=== PATIENT | female | born 1980 | race Caucasian/White ===

== ENCOUNTER 2024-07-20 17:51 | Emergency (ER) | payer MEDICAID, SELFPAY ==
[2024-07-20 17:52] VITALS: BMI 24.3
[2024-07-20 18:07] VITALS: BP 169/84; PULSE 90; RESP 19; TEMP 37.7; O2SAT 95; BMI 24.3
--- NOTE | 2024-07-20 18:25 | XR_ITS ---
Examination: CT brain head without contrast. 2-D sagittal coronal reconstructions Date and time of exam:July 20, 2024 1833 hours INDICATIONS: Headache nausea beginning today CTDI: vol (mGy):48.2 DLP: (mGycm):934 Technique: Multiple CT axial sections of the brain have been obtained, 5 mm slice thickness. Contrast has not been administered. 2-D sagittal, coronal reconstructions have been obtained Low dose protocols were performed. One or more of the following dose reduction techniques were used; automated exposure control, adjustment of the mA and/or KV according to patient size, use of iterative reconstruction technique. Findings: No significant ventricular enlargement. Intra-axial or extra-axial hemorrhage density is not seen. No mass effect or midline shift Basal cisterns are not remarkable. Fourth ventricle is midline. Cranial vault intact. Impression: Negative for acute hemorrhage, mass effect or midline shift Chronic pansinusitis, severe involving the ethmoid air cells
--- NOTE | 2024-07-20 18:26 | EDRME_ITS ---
Rapid Medical Screening Exam [facility] Arrival date/time: 07/20/24 17:51 43F with history of drug use presents to ED with 3 days of cough, BERRY, N/V, and fevers/chills. Chief Complaint: Headache Vital signs: Vital Signs Temperature 99.9 F 07/20/24 18:07 Pulse Rate 90 07/20/24 18:07 Respiratory Rate 19 07/20/24 18:07 Blood Pressure 169/84 H 07/20/24 18:07 Pulse Oximetry (%) 95 07/20/24 18:07 Oxygen Delivery Method Room Air 07/20/24 18:07
[2024-07-20] MEDS: SUMAtriptan INJ 6 MG/0.5 ML VIAL SC (18:49)
[2024-07-20] MEDS: METOCLOPRAMIDE 5 MG TABLET 10 MG PO (18:50)
[2024-07-20 21:09] LABS: Basophils % (Auto) 0 % (0-2.5); Eosinophils % (Auto) 0 % (0-10); Hemoglobin 10.5 g/dL (12.0-16.0); Immature Granulocytes % (Auto) 0 % (0-0); Immature Granulocytes Auto 0.02 Thou/mm3 (0.00-0.00); Lymphocytes # (Auto) 0.7 Thou/mm3 (1.0-4.8); Lymphocytes % (Auto) 13 % (10-50); Mean Corpuscular Hemoglobin 20.8 pg (25.0-35.0); Mean Corpuscular Volume 69 fL (80-100); Monocytes # (Auto) 0.6 Thou/mm3 (0.0-0.8); Monocytes % (Auto) 12 % (0-12); Neutrophils # (Auto) 4.1 Thou/mm3 (1.8-7.7); Neutrophils % (Auto) 74 % (37-80); Nucleated Red Blood Cell % 0 /100 WBC (0); Platelet Count 210 Thou/mm3 (140-440); Red Blood Count 5.04 Miln/mm3 (4.00-5.20); White Blood Count 5.5 Thou/mm3 (3.6-11.0)
[2024-07-20 21:37] LABS: Path Review Blood Smear Sent to Pathologist
[2024-07-20 21:40] LABS: Alanine Aminotransferase 57 U/L (10-49); Albumin, Serum 4.4 gm/dL (3.5-5.0); Albumin/Globulin Ratio 1.5 (1.2-2.2); Alkaline Phosphatase 103 U/L (46-116); Anion Gap 6 (7-16); Aspartate Amino Transferase 58 U/L (0-34); BUN/Creatinine Ratio 8 Ratio (12-20); Bilirubin,Total 0.6 mg/dL (0.3-1.2); Blood Urea Nitrogen 8 mg/dL (9-23); Calcium 10.3 mg/dL (8.3-10.6); Calcium (Corrected) 10.3 mg/dL (8.5-10.1); Carbon Dioxide 24.4 mMol/L (20.0-31.0); Chloride 100 mMol/L (98-107); Estimated Creatinine Clearance 72.4 mL/min (>60); Globulin 2.9 gm/dL (2.3-3.5); Glucose 95 mg/dL (74-106); Osmolality,Calculated 259 (275-295); Potassium 4.5 mMol/L (3.4-5.1); Procalcitonin 0.08 ng/ml (0.0-0.49); Sodium 130 mMol/L (136-145); Total Protein 7.3 gm/dL (5.7-8.2); eGFR > 60 See Note
--- NOTE | 2024-07-20 21:53 | PC.NURSE ---
NO ANSWER FOR REVIEW
--- NOTE | 2024-07-20 22:10 | PC.NURSE ---
NO ANSWER FOR REVIEW
--- NOTE | 2024-07-20 22:28 | PC.NURSE ---
NO ANSWER FOR REVIEW
== END 2024-07-20 22:28 | disposition left against medical advice (07) ==
LOC: SERX 19:05
PROVIDERS: Physician Assistant; Emergency Provider Emergency Medicine
DX: R05.9 Cough, unspecified (principal); R51.9 Headache, unspecified; R11.2 Nausea with vomiting, unspecified; R50.9 Fever, unspecified; Z53.29 Procedure and treatment not carried out because of patient's decision for other reasons
CPT/HCPCS: 36415; 70450; 80053; 83605; 84145; 85025; 87400; 87811; 96372; 99281; J3030; A9270

== ENCOUNTER 2024-07-23 16:01 | Inpatient (IN) | payer MEDICAID, SELFPAY ==
[2024-07-23 16:03] VITALS: BMI 24.3
[2024-07-23 16:43] VITALS: BP 149/75; PULSE 107; RESP 20; TEMP 39.4; O2SAT 95
--- NOTE | 2024-07-23 16:45 | XR_ITS ---
Examination: PA lateral chest 2 views TECHNIQUE: Upright PA and lateral chest 2 views Examination type: July 23, 2024, 1812 hours INDICATIONS: Coughing beginning 5 days ago. FINDINGS: Significant pneumonia right lower lobe and right middle lobe Prominent thoracic dextroscoliosis Heart is normal in size IMPRESSION: Significant pneumonia right base right middle lobe
--- NOTE | 2024-07-23 16:45 | PC.NURSE ---
sepsis alert initiated
--- NOTE | 2024-07-23 16:46 | PD.EDRME ---
Rapid Medical Screening Exam [facility] Arrival date/time: 07/23/24 16:01 43-year-old female presents to the emergency department today for complaints of fever cough and congestion Chief Complaint: Flu Like Symptoms Time Seen by Provider: 07/23/24 16:09 Vital signs: Vital Signs Temperature 103.0 F H 07/23/24 16:43 Pulse Rate 107 H 07/23/24 16:43 Respiratory Rate 20 07/23/24 16:43 Blood Pressure 149/75 H 07/23/24 16:43 Pulse Oximetry (%) 95 07/23/24 16:43 Oxygen Delivery Method Room Air 07/23/24 16:43
[2024-07-23 16:55] VITALS: TEMP 39.4
[2024-07-23] MEDS: ACETAMINOPHEN 500 MG TABLET 1000 MG PO (16:55)
[2024-07-23 17:27] LABS: Basophils % (Auto) 0 % (0-2.5); Eosinophils % (Auto) 0 % (0-10); Hematocrit 31.8 % (36.0-46.0); Hemoglobin 9.7 g/dL (12.0-16.0); Immature Granulocytes % (Auto) 1 % (0-0); Immature Granulocytes Auto 0.04 Thou/mm3 (0.00-0.00); Lymphocytes # (Auto) 0.4 Thou/mm3 (1.0-4.8); Lymphocytes % (Auto) 5 % (10-50); Mean Corpuscular HGB Conc 30.5 g/dl (31.0-37.0); Mean Corpuscular Volume 69 fL (80-100); Monocytes # (Auto) 0.4 Thou/mm3 (0.0-0.8); Monocytes % (Auto) 5 % (0-12); Neutrophils # (Auto) 7.8 Thou/mm3 (1.8-7.7); Neutrophils % (Auto) 90 % (37-80); Nucleated Red Blood Cell % 0 /100 WBC (0); Platelet Count 175 Thou/mm3 (140-440); RDW Standard Deviation 38.7 fL (36.4-46.3); Red Blood Count 4.62 Miln/mm3 (4.00-5.20); White Blood Count 8.7 Thou/mm3 (3.6-11.0)
[2024-07-23 17:51] LABS: Alanine Aminotransferase 102 U/L (10-49); Albumin, Serum 3.9 gm/dL (3.5-5.0); Albumin/Globulin Ratio 1.5 (1.2-2.2); Alkaline Phosphatase 141 U/L (46-116); Anion Gap 6 (7-16); Aspartate Amino Transferase 130 U/L (0-34); BUN/Creatinine Ratio 12 Ratio (12-20); Bilirubin,Total 0.8 mg/dL (0.3-1.2); Blood Urea Nitrogen 12 mg/dL (9-23); Calcium 9.7 mg/dL (8.3-10.6); Calcium (Corrected) 9.8 mg/dL (8.5-10.1); Carbon Dioxide 26.3 mMol/L (20.0-31.0); Chloride 96 mMol/L (98-107); Estimated Creatinine Clearance 72.4 mL/min (>60); Globulin 2.6 gm/dL (2.3-3.5); Glucose 113 mg/dL (74-106); Osmolality,Calculated 257 (275-295); Potassium 4.2 mMol/L (3.4-5.1); Procalcitonin 2.13 ng/ml (0.0-0.49); Sodium 128 mMol/L (136-145); Total Protein 6.5 gm/dL (5.7-8.2); eGFR > 60 See Note
[2024-07-23 18:21] VITALS: BP 123/75; PULSE 93; RESP 19; TEMP 36.8; O2SAT 96
--- NOTE | 2024-07-23 19:23 | PD.EDURI ---
Upper Respiratory Inf. RME/HPI General Chief Complaint: Flu Like Symptoms Stated Complaint: FLU SYMPTOMS X5 DAYS Time Seen by Provider: 07/23/24 16:09 Arrival date/time: 07/23/24 16:01 RME / HPI RME / HPI Narrative: 07/23/24 16:01 43-year-old female presents to the emergency department today for complaints of fever cough and congestion ------- Dr. Stevenson's Main ED Evaluation: 43yo female with no significant past medical history presents to the ED for a chief complaint of a fever x 5 days. Patient states she's had a fever of 103-104 for the last 5 days, reporting she's been taking Tylenol at home without alleviation of symptoms. Patient endorses having a cough, migraine headache, and sweating. She denies any chest pain, shortness of breath, abdominal pain, back pain, extremity pain or any other associated symptoms. She is not on any daily medications. Denies tobacco use. No known allergies. Related Data Previous Rx's ?Medication ?Instructions ?Recorded promethazine-DM 6.25 mg-15 mg/5 mL 5 ml PO Q6H PRN cough #118 mL 03/01/22 oral syrup Allergies Allergy/AdvReac Type Severity Reaction Status Date / Time No Known Allergies Allergy Verified 07/20/24 17:54 Review of Systems Review of Systems Systems Reviewed: All systems reviewed, normal except as documented Past Medical History Past Medical History CARDIAC: Negative Cardiac Disorders or Congestive Heart Failure RESPIRATORY: Negative Chronic Obstructive Pulmonary Disease (COPD) or Asthma GENITOURINARY: Negative Renal Disease ENDOCRINE: Negative Diabetes Mellitus Type 1 or Diabetes Mellitus Type 2 HEMATOLOGIC: Negative Sickle Cell Disease Surgical History SURGICAL: Positive Tubal Ligation Social History SMOKING STATUS: Never smoker ED Exam Narrative Physical exam: General: Non-toxic, in no acute distress, and appears stated age; appears clinically dehydrated. Vital signs: Normal. Head: Normocephalic and atraumatic. Eyes: Aproptotic, extraocular movements intact. Nose: Nares without evidence of rhinorrhea. Neck: Supple without menigismus without lympadenopathy. Heart: Regular rate and rhythm without murmur, gallops, or rubs. Lungs: Diffuse wheezing. Abdomen: Soft, non distended. No tenderness. Normal bowel sounds. Negative Rodriguez sign and no McBurney?s point tenderness. No guarding, rebound, or rovsing. Back: No costovertebral angle tenderness. Neurological: Alert and oriented to person, place, time. Gait normal. Extremities: no cyanosis or edema. Skin: Diaphoretic; no rashes, ecchymosis, or lesions. Course Course Course Narrative: CXR is ordered for determining the etiology of cough. Quality Measures Possible source: pulmonary Blood cultures ordered: yes Antibiotic ordered: Yes Pertinent labs: 07/23/24 17:04 Lactic Acid 1.0 mMol/L (0.4-2.0) Procalcitonin 2.13 H ng/ml (0.0-0.49) sepsis Orders Category Date Time Status Bedside COVID-19 Antigen Test NOW Care 07/23/24 16:45 Active Bedside Influenza A&B Antigen Test NOW Care 07/23/24 16:45 Completed Manager Employee Relations STAT Care 07/23/24 19:27 Active Continuous Pulse Oximetry STAT Care 07/23/24 19:27 Active EKG (ED ONLY) *Do not use* NOW Care 07/23/24 19:27 Completed In and Out Catheter X1PRN Care 07/23/24 19:27 Active Insert IV NOW Care 07/23/24 19:27 Active NPO STAT Care 07/23/24 19:27 Active Strict Intake and Output Routine Care 07/23/24 19:27 Ordered EKG (ED Only) Stat Exams 07/23/24 19:27 Draft XR chest 2V Stat Exams 07/23/24 16:45 Completed B-Type Natriuretic Peptide Stat Lab 07/23/24 17:04 Received Blood Culture (Lab) Stat Lab 07/23/24 17:04 Received CBC Stat Lab 07/23/24 17:04 Completed Comprehensive Metabolic Panel Stat Lab 07/23/24 17:04 Completed Drug Screen,Urine Stat Lab 07/23/24 16:45 Ordered HCG Qualitative,Urine Stat Lab 07/23/24 16:45 Ordered LDH (Lactate Dehydrogenase) Stat Lab 07/23/24 17:04 Received Lactate (Lactic Acid) Stat Lab 07/23/24 17:04 Completed Lipase Stat Lab 07/23/24 17:04 Received Magnesium Stat Lab 07/23/24 17:04 Received Partial Thromboplastin Time Stat Lab 07/23/24 17:04 Completed Phosphorous Stat Lab 07/23/24 17:04 Received Procalcitonin Stat Lab 07/23/24 17:04 Completed Prothrombin Time with INR Stat Lab 07/23/24 17:04 Completed Troponin I Stat Lab 07/23/24 17:04 Received Urinalysis Stat Lab 07/23/24 16:45 Ordered Urine Culture Stat Lab 07/23/24 16:45 Ordered Acetaminophen Tab [Tylenol ES Tab] Med 07/23/24 16:45 Discontinued 1,000 mg PO X1 ONE Albuterol/Ipratr Rt Monica [Duoneb Rt Monica] Med 07/23/24 19:26 Discontinued 3 ml INH X1 ONE Azithromycin Inj [Zithromax Inj] 500 mg Med 07/24/24 09:00 Pending Sodium Chloride 0.9% 250 ml [Ns] 250 ml IV QDAY Azithromycin Inj [Zithromax Inj] 500 mg Med 07/23/24 19:30 Active Sodium Chloride 0.9% 250 ml [Ns] 250 ml IV X1 Sodium Chloride 0.9% 1000 ml [Ns] 1,917 ml Med 07/23/24 19:26 Active IV 1,917 mls/hr cefTRIAXone/D5w 1gm IV premix [Rocephin/D5w 1gm IV Med 07/23/24 19:26 Discontinued premix] 1 gm in 50 ml IV X1 Oxygen Delivery NOW RT 07/23/24 19:27 Active Vital Signs Vital signs: Vital Signs Temperature 103.0 F H 07/23/24 16:43 Pulse Rate 107 H 07/23/24 16:43 Respiratory Rate 20 07/23/24 16:43 Blood Pressure 149/75 H 07/23/24 16:43 Pulse Oximetry (%) 95 07/23/24 16:43 Oxygen Delivery Method Room Air 07/23/24 16:43 Upper Respiratory Infection MDM Narrative MDM Narrative:: Scribe Attestation: 07/23/24 - Fiorella Carlos am scribing for and in the presence of Dr. Stevenson. 1644: Sepsis alert initiated prior to my shift. Orders made at this time are congruent with ED Adult Sepsis Order List. Re-evaluation is to be completed. NS IVF was ordered by me at 1925. 1923: Discussed case with Dr. Prieto from Hospitalist service regarding admission. Discussed patients ED course, exam findings, labs, and radiology results. The Hospitalist agrees to accept the patient for admission. Patient data External records reviewed:: [facility] previous records (Per chart review, patient was seen here on 03/01/22 for bronchitis. ) Clinical information provided by:: patient Social determinants that could affect healthcare access:: none Patient has the following chronic illnesses:: none How is presenting disease/condition affected by chronic disease/condition?: no chronic disease Evaluation data The following diagnostics were reviewed and interpreted by me:: lab results, radiology exam(s) and EKG tracing(s) Lab and/or radiology exams considered but not ordered:: none Interpretation Summary: Bedside Influenza A/B are positive, WBC count is normal, Sodium is 128, Lactic Acid is normal, Procalcitonin is elevated at 2.13, according to my interpretation. EKG done at 1934, NSR, rate of 89, normal axis, normal intervals, no acute ST or T wave changes, according to my interpretation. ---- [facility] Report Signed Patient: XIOMARA CADENA Record#: [id number] Birthdate: 1980 Age/Sex: 43 / F Location: [facility] Attending Dr: Ordering Physician: Gene (KARLEE),Wolf DESIR Date of Service: 07/23/24 Procedure(s): XR chest 2V Accession Number(s): [id number] cc: Gene SHAVER),Wolf DESIR; Matheus Liang MD; NO PRIMARY/FAMILY,PHYSICIAN~ Examination: PA lateral chest 2 views TECHNIQUE: Upright PA and lateral chest 2 views Examination type: July 23, 2024, 1812 hours INDICATIONS: Coughing beginning 5 days ago. FINDINGS: Significant pneumonia right lower lobe and right middle lobe Prominent thoracic dextroscoliosis Heart is normal in size IMPRESSION: Significant pneumonia right base right middle lobe\ Dictated By: Matheus Liang MD Signed By: <Electronically signed by Matheus Liang MD in OV> 07/23/24 7359 Medications / Prescriptions Medications or Prescriptions considered but not ordered:: none Medication administrations:: Medication Administration History Sodium Chloride (Ns) 1,917 mls @ 1,917 mls/hr 30 ml/kg infuse over 60 min (1917 ml) IV .Q1H ONE Stop: 07/23/24 20:25 Last Admin: 07/23/24 20:02 Dose: 1,917 mls/hr Documented By: EE Azithromycin 500 mg/ Sodium (Chloride) 250 mls @ 250 mls/hr IV QDAY [facility] Stop: 07/31/24 08:59 Azithromycin 500 mg/ Sodium (Chloride) 250 mls @ 250 mls/hr IV X1 ONE Stop: 07/23/24 20:29 Last Admin: 07/23/24 20:02 Dose: 250 mls/hr Documented By: EE Oseltamivir Phosphate (Oseltamivir 75 Mg Capsule) 75 mg PO BID [facility] Stop: 07/30/24 20:59 Discontinued Medications Acetaminophen (Acetaminophen 500 Mg Tablet) 1,000 mg PO X1 ONE Stop: 07/23/24 16:46 Last Admin: 07/23/24 16:55 Dose: 1,000 mg Documented By: OA Albuterol/Ipratropium (Albuterol/Ipratropium (Duoneb) Rt Monica 3 Ml Nebu) 3 ml INH X1 ONE Stop: 07/23/24 19:27 Last Admin: 07/23/24 20:00 Dose: 3 ml Documented By: EE Ceftriaxone Sodium/Dextrose (Rocephin/D5w 1gm Iv Premix) 1 gm in 50 mls @ 100 mls/hr IV X1 ONE Stop: 07/23/24 19:55 Last Admin: 07/23/24 20:01 Dose: 100 mls/hr Documented By: SHIRLENE see above Consultations Consultation(s) initiated? (list below): Yes Diagnosis Upper Respiratory Differential Diagnosis: upper respiratory infection, influenza and other (COVID, sepsis, pneumonia, PE) Most likely diagnosis given after review of the tests above:: see clinical impression below Admission Indicated Admission indicated?: indicated Admission Request Was there a request for admission?: Yes Admission Attestation Admission request attestation: Discussed case with [] from Hospitalist service regarding admission. Discussed patients ED course, exam findings, labs, and radiology results. The Hospitalist [agrees,declines] to accept the patient for admission. Disposition Plan Disposition Plan: Admit Discharge Plan Plan Patient Disposition: Admit Acute Care w/in Hospital Disposition Comment: Admitted to Dr. Prieto Problem List Clinical Impression: Sepsis, Influenza, Pneumonia, Dehydration
--- NOTE | 2024-07-23 19:27 | EKG_ITS ---
[facility] Test Date: 2024-07-23 Pat Name: XIOMARA CADENA Department: Room: - Gender: Female Tow Feeder: : 1980 Requested By: Pricilla Viera Order Number: [id number] Reading MD: Pricilla Viera Measurements Intervals Albert Rate: 89 P: 78 MT: 152 QRS: 60 QRSD: 90 T: 66 QT: 385 QTc: 471 Interpretive Statements SINUS RHYTHM POSSIBLE LEFT ATRIAL ENLARGEMENT [-0.1mV P-WAVE IN V1/V2] Compared to ECG 08/04/2020 13:56:28 No significant changes /store/S0/[id number]/ecg/[id number].pdf
[2024-07-23] MEDS: ALBUTEROL/IPRATROPIUM (Duoneb) RT SOL 3 ML NEBU INH (20:00)
[2024-07-23 20:01] VITALS: PULSE 83; PULSE 84; RESP 20; RESP 93; O2SAT 100
[2024-07-23] MEDS: cefTRIAXone/D5w 1gm IV premix 1 GM/50 ML BAG IV (20:01)
[2024-07-23] MEDS: AZITHROMYCIN INJ 500 MG in SODIUM CHLORIDE 0.9% 250 ML 250 ML 250 MG IV (20:02)
[2024-07-23] MEDS: SODIUM CHLORIDE 0.9% 1917 ML IV (20:02)
[2024-07-23 20:11] LABS: INR 1.2 (0.9-1.3); Partial Thromboplastin Time 28.3 Seconds (22.0-36.0); Prothrombin Time 12.6 Seconds (9.0-12.2)
--- NOTE | 2024-07-23 20:22 | ESHP_ITS ---
Documentation for date of: 07/23/24 HPI History of Present Illness Chief complaint: productive cough, fever, chills History of present illness: Patient is a 43-year-old female with no significant previous medical history who came to the ED with complaints of fever, chills, cough, headache. She denies shortness of breath, chest pain, abdominal pain. She reports the symptoms started few days ago, reports that she is homeless. ED course: Initial vitals 149/75, pulse 107, respiratory rate 20, fever 103.0, saturating well on room air. Bedside influenza A and influenza B are positive. Labs showed WBC count 8.7, hemoglobin 9.7, platelets 175, INR 1.2, sodium 128, potassium 4.2, chloride 96, carbon dioxide 26.3, BUN 12, creatinine 1.0, glucose 113, T. bili 0.6, AST 130, ALT 102, alkaline phosphatase 141. LDH, troponin I, BNP pending, phosphorus and magnesium are pending. Lipase is pending, Pro-Venkat 2.13. U tox was ordered. Urin Hcg was negative. Chest x-ray showed significant pneumonia of right lung base. EKG showed sinus rhythm with QTc of 471. Patient is going to be admitted for sepsis secondary to community-acquired pneumonia. Social history: Homeless, denies smoking, denies alcohol use. Reports previous methamphetamine use, reports that has not been using meth ' in a while'. Reports occasional marijuana smoking. Medications: Denies taking medications Surgeries: Denies surgeries Allergies: Denies allergies Review of Systems Review of Systems Systems Reviewed: All systems reviewed, normal except as documented Past Medical History Past Medical History CARDIAC: Negative Cardiac Disorders or Congestive Heart Failure RESPIRATORY: Negative Chronic Obstructive Pulmonary Disease (COPD) or Asthma GENITOURINARY: Negative Renal Disease ENDOCRINE: Negative Diabetes Mellitus Type 1 or Diabetes Mellitus Type 2 HEMATOLOGIC: Negative Sickle Cell Disease Surgical History SURGICAL: Positive Tubal Ligation Social History SMOKING STATUS: Never smoker Exam Vital Signs Temp Pulse Resp BP Pulse Ox O2 Del Method 98.3 F 83 20 123/75 100 Room Air 07/23/24 18:21 07/23/24 20:01 07/23/24 20:01 07/23/24 18:21 07/23/24 20:01 07/23/24 18:21 Narrative Exam Physical Exam General: Awake and in no acute distress. . HEENT: Normocephalic, atraumatic, mucous membranes moist. Heart: Regular rate and rhythm, no murmurs. Lungs: Right sided rhonchi. Abdomen: Soft, nondistended, nontender, positive bowel sounds. ?No guarding or rebound tenderness. Neurologic: Alert and oriented x3, no gross neurological deficit, and patient able to move all 4 extremities. Extremities: No edema. Skin: No rash or ecchymoses. Results: Labs 07/23/24 17:04 07/23/24 17:04 Labs: Short CBC 07/23/24 Range/Units 17:04 WBC 8.7 D (3.6-11.0) Thou/mm3 Hgb 9.7 L (12.0-16.0) g/dL Hct 31.8 L (36.0-46.0) % Plt Count 175 D (140-440) Thou/mm3 BMP 07/23/24 17:04 Sodium 128 L Potassium 4.2 Chloride 96 L Carbon Dioxide 26.3 BUN 12 Creatinine 1.0 Glucose 113 H Calcium 9.7 Liver Function 07/23/24 Range/Units 17:04 Total Bilirubin 0.8 (0.3-1.2) mg/dL AST 130 H (0-34) U/L ALT 102 H (10-49) U/L Alkaline Phosphatase 141 H D (46-116) U/L Albumin 3.9 D (3.5-5.0) gm/dL Quality Measures Quality Measures sepsis Current suspected stage: sepsis Possible source: pulmonary Blood cultures ordered: yes Antibiotic ordered: Yes Medications Home Medications and Allergies Allergies Allergy/AdvReac Type Severity Reaction Status Date / Time No Known Allergies Allergy Verified 07/20/24 17:54 Visit Medications Sodium Chloride (Ns) 1,917 mls @ 1,917 mls/hr 30 ml/kg infuse over 60 min (1917 ml) IV .Q1H ONE Stop: 07/23/24 20:25 Last Admin: 07/23/24 20:02 Dose: 1,917 mls/hr Azithromycin 500 mg/ Sodium (Chloride) 250 mls @ 250 mls/hr IV X1 ONE Stop: 07/23/24 20:29 Last Admin: 07/23/24 20:02 Dose: 250 mls/hr Ceftriaxone Sodium/Dextrose (Rocephin/D5w 1gm Iv Premix) 1 gm in 50 mls @ 100 mls/hr IV QDAY JAMES Stop: 07/31/24 08:59 Azithromycin 500 mg/ Sodium (Chloride) 250 mls @ 250 mls/hr IV QDAY JAMES Stop: 07/31/24 08:59 Oseltamivir Phosphate (Oseltamivir 75 Mg Capsule) 75 mg PO BID JAMES Stop: 07/30/24 20:59 Discontinued Medications Acetaminophen (Acetaminophen 500 Mg Tablet) 1,000 mg PO X1 ONE Stop: 07/23/24 16:46 Last Admin: 07/23/24 16:55 Dose: 1,000 mg Albuterol/Ipratropium (Albuterol/Ipratropium (Duoneb) Rt Monica 3 Ml Nebu) 3 ml INH X1 ONE Stop: 07/23/24 19:27 Last Admin: 07/23/24 20:00 Dose: 3 ml Ceftriaxone Sodium/Dextrose (Rocephin/D5w 1gm Iv Premix) 1 gm in 50 mls @ 100 mls/hr IV X1 ONE Stop: 07/23/24 19:55 Last Admin: 07/23/24 20:01 Dose: 100 mls/hr Azithromycin 500 mg/ Sodium (Chloride) 250 mls @ 250 mls/hr IV QDAY JAMES Stop: 07/31/24 08:59 Assessment & Plan Plan Patient is a 43-year-old female with no significant previous medical history who came to the ED with complaints of fever, chills, cough, headache. Patient is going to be admitted for sepsis secondary to community-acquired pneumonia. #Sepsis 2/2 #Community-acquired pneumonia #Influenza A and B infection Patient reports fever chills and productive cough. In the ED she was tachypneic, feverish. Sepsis alert was called. Sepsis bolus 30 mg/kg was ordered. She was started on antibiotics in the ED. Plan: ? Ceftriaxone 1 g daily ? Azithromycin 500 mg daily ? Blood cultures ordered ? Oseltamivir 75 mg twice daily #Hypomagnesemia #Hypophosphatemia Initial Mg 1.4, phosphorus 1.2. Was given Mg 4 gm IV, 1 pkt of neutra-phos. Plan: - replete as necessary - monitor CMP #Elevated transaminases Could be in the setting of acute infection or drug toxicity. AST 130, ALT 102. Alkaline phosphatase 141. Plan: ? Liver ultrasound ordered ? U-Tox ordered - hepatitis panel ordered #History of methamphetamine use Plan: - social media marketing manager consult #Headache Plan: - sumatriptan 25 mg x1 - tylenol prn Health maintenance: FEN: regular DVT prophylaxis: lovenox 40 mg sc GI prophylaxis: none Dispo: telemetry CODE STATUS: Full code Plan of care discussed with attending Dr. Prieto. Genny Denney MD, PGY 1. Attending Provider Attestation/Addendum I attest that I was physically present for the evaluation, physical examination, lab and imaging review of the patient with the residents. I discussed the case with the residents and agree with the findings and plans of care as documented above. Patient is a 43 years old female without known past medical history who presented to the ED with complaint of fever, chills, cough, headache. Her symptoms started about 5 days back. Denies any chest pain, shortness of breath, bowel or bladder issues. In the ED, she was found to have temperature of 103.0, pulse 107, respiratory 20, blood pressure 149/75. Influenza A and B were positive. Hemoglobin 9.7, AST 130, ALT 102, ALP 141, procalcitonin 2.13, sodium 128. Chest x-ray was done, which shows significant pneumonia on right base right middle lobe. We will admit the patient for management of sepsis secondary to influenza A pneumonia. Patient received 30 cc/kg IV fluid bolus in the ED. We will start her on oseltamivir. Patient might have superimposed bacterial pneumonia with positive procalcitonin, we will start her on IV Rocephin and azithromycin. Urine toxicology was positive for methamphetamine, we will monitor closely for withdrawal symptoms. Noted to have electrolyte imbalances including low phosphorus and magnesium, repleted accordingly. Patient has sodium of 128, received IV fluid bolus, we will follow-up with CMP in the morning. Patient also had elevated AST, ALT and ALP, we will obtain liver ultrasound. Blood and urine cultures have been obtained. Nadira Prieto MD
[2024-07-23 20:29] LABS: LDH (Lactate Dehydrogenase) 293 U/L (120-246); Lipase 21 U/L (12-53); Magnesium 1.4 mg/dL (1.6-2.6); Phosphorous 1.2 mg/dL (2.4-5.1); Troponin I < 0.020 ng/mL (0.0-0.045)
[2024-07-23 20:49] LABS: Collection Type, Urine Clean Catch
--- NOTE | 2024-07-23 20:49 | XR_ITS ---
Examination: Abdomen sonogram, Limited Date and time of exam: July 23, 2024 at 2123 hours INDICATIONS: Elevated liver transaminase on laboratory examination today Technique: Real-time ojeda scale transabdominal sonographic images of the upper abdomen obtained. Findings: Normal gallbladder Normal common bile ducts are 0.4 cm Pancreatic head 2.5 cm Liver 14.4 cm fatty infiltration, 5.4 x 3.9 x 4.5 cm lesion in the right lobe Normal hepatopedal portal venous flow Patent IVC IMPRESSION: Right lobe liver lesion 5.4 x 3.9 x 4.5 cm, recommend MRI abdomen liver followed by pre and postcontrast
[2024-07-23 20:51] VITALS: BP 119/66; PULSE 84; PULSE 86; RESP 18; RESP 98; O2SAT 98
[2024-07-23 20:51] LABS: B-Type Natriuretic Peptide 45 pg/mL (0-100)
[2024-07-23 20:54] LABS: Bilirubin,Urine Negative (Negative); Blood,Urine Negative (Negative); Clarity,Urine Clear (Clear/Hazy); Color,Urine Lt-Yellow (Lt Yel-Yel); Glucose, Urine Negative (Negative); Ketones,Urine Negative (Negative); Leukocyte Esterase,Urine Positive (Negative); Nitrite,Urine Negative (Negative); Protein,Urine Negative (Neg - Trace); RBC,Urine 1 /hpf (0-3); Specific Gravity,Urine 1.007 (1.001-1.035); Squamous Epithelial Cell,Urine 1 /hpf (0-5); Urobilinogen,Urine Negative mg/dL (0.0-1.0); WBC,Urine 1 /hpf (0-5)
[2024-07-23 21:00] LABS: HCG Qualitative,Urine Negative
[2024-07-23 21:14] LABS: Amphetamine/Methamp Scrn,U Positive (Negative); Barbiturate Screen,Urine Negative (Negative); Benzodiazepines Screen,Urine Negative (Negative); Benzoylecgonine Screen, Ur Negative (Negative); Fentanyl Screen,Urine Negative (Negative); Opiate Screen,Urine Negative (Negative); THC Screen,Urine Negative (Negative)
[2024-07-23] MEDS: OSELTAMIVIR 75 MG CAPSULE PO (21:18)
[2024-07-23 22:24] VITALS: BP 121/60; PULSE 84; RESP 17; TEMP 36.7; O2SAT 100
[2024-07-24] VITALS (9 sets, daily range): BP systolic 110–158; BP diastolic 63–85; PULSE 77–98; RESP 13–97; TEMP 35.9–36.5; O2SAT 96–99; BMI 21.9
[2024-07-24] MEDS: Magnesium Sulfate 4 GM Ivpb 4 GM/50 ML BAG IV (00:39)
[2024-07-24] MEDS: ACETAMINOPHEN 325 MG TABLET 650 MG PO ×2 (00:40→08:01)
[2024-07-24] MEDS: NAPH,KPH MBDB 1 PACKET (1.5 GM) PO (00:40)
--- NOTE | 2024-07-24 00:56 | PC.NURSE ---
Pt NPO now, okay to give neutra phosp, tylenol, Zumatriptan PO to pt per Dr. Denney.
[2024-07-24] MEDS: SUMAtriptan 25 MG TABLET PO (01:20)
[2024-07-24 05:47] LABS: Basophils % (Auto) 0 % (0-2.5); Eosinophils % (Auto) 0 % (0-10); Hematocrit 29.7 % (36.0-46.0); Immature Granulocytes % (Auto) 0 % (0-0); Immature Granulocytes Auto 0.01 Thou/mm3 (0.00-0.00); Lymphocytes # (Auto) 0.6 Thou/mm3 (1.0-4.8); Lymphocytes % (Auto) 13 % (10-50); Mean Corpuscular HGB Conc 29.6 g/dl (31.0-37.0); Mean Corpuscular Hemoglobin 21.1 pg (25.0-35.0); Mean Corpuscular Volume 71 fL (80-100); Monocytes # (Auto) 0.4 Thou/mm3 (0.0-0.8); Monocytes % (Auto) 8 % (0-12); Neutrophils # (Auto) 3.6 Thou/mm3 (1.8-7.7); Neutrophils % (Auto) 79 % (37-80); Nucleated Red Blood Cell % 0 /100 WBC (0); Platelet Count 129 Thou/mm3 (140-440); RDW Standard Deviation 39.8 fL (36.4-46.3); Red Blood Count 4.18 Miln/mm3 (4.00-5.20); White Blood Count 4.6 Thou/mm3 (3.6-11.0)
[2024-07-24 06:17] LABS: Hemoglobin 8.8 g/dL (12.0-16.0)
[2024-07-24 06:57] LABS: Alanine Aminotransferase 92 U/L (10-49); Albumin, Serum 3.3 gm/dL (3.5-5.0); Albumin/Globulin Ratio 1.5 (1.2-2.2); Alkaline Phosphatase 120 U/L (46-116); Anion Gap 3 (7-16); Aspartate Amino Transferase 94 U/L (0-34); BUN/Creatinine Ratio 11 Ratio (12-20); Bilirubin,Total 0.5 mg/dL (0.3-1.2); Blood Urea Nitrogen 9 mg/dL (9-23); Calcium 9.6 mg/dL (8.3-10.6); Calcium (Corrected) 10.2 mg/dL (8.5-10.1); Carbon Dioxide 26.8 mMol/L (20.0-31.0); Chloride 106 mMol/L (98-107); Creatinine (Component) 0.8 mg/dL (0.6-1.3); Estimated Creatinine Clearance 90.5 mL/min (>60); Globulin 2.2 gm/dL (2.3-3.5); Glucose 102 mg/dL (74-106); Hepatitis A Antibody IgM Non Reactive (Non React); Hepatitis B Core Antibody IgM Non Reactive (Non React); Hepatitis B Surface Antigen Non Reactive (Non React); Hepatitis C Antibody Non Reactive (Non React); Osmolality,Calculated 270 (275-295); Potassium 4.1 mMol/L (3.4-5.1); Sodium 136 mMol/L (136-145); Total Protein 5.5 gm/dL (5.7-8.2); eGFR > 60 See Note
[2024-07-24] MEDS: cefTRIAXone/D5w 1gm IV premix 1 GM/50 ML BAG IV (08:01)
[2024-07-24] MEDS: ENOXAPARIN SOD INJ 40 MG/0.4 ML SYRINGE SC (08:01)
[2024-07-24] MEDS: OSELTAMIVIR 75 MG CAPSULE PO ×2 (08:01→20:57)
--- NOTE | 2024-07-24 11:18 | PC.SS ---
Patient Kristie Bland is a 43 Year old female admitted for Sepsis, Flu. SS met with patient at bedside. Patient reports she is homeless. Patient reports her son Moy Bland is surrogate decision maker [phone]. Patient is able to complete all ADL's independently. Patient does not utilize any source of DME to assist with ambulation. Pharmacy of Choice is [facility]. Patient reports at time if discharge she will need SS to assist with transportation to the [facility]. SS will stand by for further needs,. Next of Kin: SonMoy Discharge plan: [facility]
--- NOTE | 2024-07-24 15:32 | ESPR_ITS ---
<Statement entered by Krupa Reagan MD - 07/27/24 08:14> I reviewed above note and agree with findings and plans. I have also personally examined the patient with medicine team and went over assessment and plan with medical team including development intern and resident physician. <Statement entered by Shukri Maravilla MD - 07/24/24 17:21> Senior Resident Attestation: I supervised/discussed management plan with development intern physician Dr. Dos Santos, and was involved in the care of this patient. I personally saw and examined the patient and discussed the assessment and plan with the entire medicine team, including my attending. I agree with the assessment and plan as documented. Patient's care was discussed with attending physician, Dr. Reagan. Shukri Maravilla MD PGY-2. Documentation for date of: 07/24/24 Subjective Subjective Interval history: Patient is seen and examined at bedside Patient is admitted overnight in view of flu pneumonia Vitals are stable patient is on room air saturating at 98 to 99% Labs showed hemoglobin 8.8, platelets 129, phosphorus 1.2, magnesium 1.4, AST 94, ALT 92, LDH 293, procalcitonin 2.13 Will continue Tamiflu and antibiotics for now Planning to discharge tomorrow if patient is hemodynamically stable Exam Vital Signs Temp Pulse Resp BP Pulse Ox O2 Del Method 96.9 F 87 15 131/75 H 99 Room Air 07/24/24 12:00 07/24/24 12:00 07/24/24 12:00 07/24/24 12:00 07/24/24 12:00 07/24/24 12:00 Narrative Exam General: Awake. HEENT: Normocephalic, atraumatic, mucous membranes moist. Heart: Regular rate and rhythm, no murmurs. Lungs: Right basilar fine inspiratory crepitations are heard Abdomen: Soft, nondistended, nontender, positive bowel sounds. ?No guarding or rebound tenderness. Neurologic: Alert and oriented x3, no gross neurological deficit, and patient able to move all 4 extremities. Extremities: No edema. Skin: No rash or ecchymoses. Objective Labs 07/24/24 04:55 07/24/24 04:55 Labs: Laboratory Results - last 24 hr 07/23/24 07/23/24 07/24/24 17:04 20:39 04:55 WBC 8.7 D 4.6 D RBC 4.62 4.18 Hgb 9.7 L 8.8 L Hct 31.8 L 29.7 L MCV 69 L 71 L MCH 21.0 L 21.1 L MCHC 30.5 L 29.6 L RDW Std Deviation 38.7 39.8 Plt Count 175 D 129 L D Neut % (Auto) 90 H 79 Lymph % (Auto) 5 L 13 [place] % (Auto) 5 8 Eos % (Auto) 0 0 Baso % (Auto) 0 0 Neut # (Auto) 7.8 H 3.6 Lymph # (Auto) 0.4 L 0.6 L [place] # (Auto) 0.4 0.4 Eos # (Auto) 0.0 0.0 Baso # (Auto) 0.0 0.0 Immature Gran # (Auto) 0.04 H 0.01 H Absolute Nucleated RBC 0.00 0.00 Immature Gran % 1 H 0 Nucleated RBC % 0 0 PT 12.6 H INR 1.2 APTT 28.3 Sodium 128 L 136 Potassium 4.2 4.1 Chloride 96 L 106 Carbon Dioxide 26.3 26.8 Anion Gap 6 L 3 L BUN 12 9 Creatinine 1.0 0.8 Estim Creat Clear Calc 72.4 90.5 eGFR > 60 > 60 BUN/Creatinine Ratio 12 11 L Glucose 113 H 102 Calculated Osmolality 257 L 270 L Lactic Acid 1.0 Calcium 9.7 9.6 Corrected Calcium 9.8 10.2 H Phosphorus 1.2 L Magnesium 1.4 L Total Bilirubin 0.8 0.5 AST 130 H 94 H ALT 102 H 92 H Alkaline Phosphatase 141 H D 120 H D Lactate Dehydrogenase 293 H Troponin I < 0.020 B-Natriuretic Peptide 45 Total Protein 6.5 5.5 L Albumin 3.9 D 3.3 L D Globulin 2.6 2.2 L Albumin/Globulin Ratio 1.5 1.5 Lipase 21 Procalcitonin 2.13 H Ur Collection Type Clean Catch Urine Color Lt-Yellow Urine Clarity Clear Urine pH 6.0 Ur Specific [place] 1.007 Urine Protein Negative Urine Glucose (UA) Negative Urine Ketones Negative Urine Blood Negative Urine Nitrite Negative Urine Bilirubin Negative Urine Urobilinogen (Auto) Negative Ur Leukocyte Esterase Positive Urine RBC 1 Urine WBC 1 Ur Squamous Epith Cells 1 Urine Bacteria None Urine HCG, Qual Negative Urine Opiates Screen Negative Urine Fentanyl Screen Negative Ur Barbiturates Screen Negative U Amphetamin/Meth Scrn Positive A U Benzodiazepines Scrn Negative U Cocaine Metab Screen Negative U Marijuana (THC) Screen Negative Hepatitis A IgM Ab Non Reactive Hep Bs Antigen Non Reactive Hep B Core IgM Ab Non Reactive Hepatitis C Antibody Non Reactive Quality Measures Quality Measures sepsis Current suspected stage: ruled out Possible source: pulmonary Blood cultures ordered: yes Antibiotic ordered: Yes Assessment & Plan Assessment Current Active Medications: Generic Name Dose Route Start Last Admin Trade Name Freq PRN Reason Stop Dose Admin Acetaminophen 650 mg 07/23/24 20:23 07/24/24 08:01 Acetaminophen 325 Mg Tablet PO 08/22/24 20:22 650 mg Q6H PRN Administration Fever >100.3 or pain 1-3 Albuterol/Ipratropium 3 ml 07/23/24 20:23 Albuterol/Ipratropium (Duoneb) Rt Monica 3 Ml Nebu INH 08/22/24 20:22 Q2HR PRN SHORTNESS OF BREATH OR WHEEZE Enoxaparin Sodium 40 mg 07/24/24 09:00 07/24/24 08:01 Enoxaparin Sod Inj 40 Mg/0.4 Ml Syringe SC 08/07/24 08:59 40 mg QDAY JAMES Administration Ceftriaxone Sodium/Dextrose 1 gm in 50 mls @ 100 mls/hr 07/24/24 09:00 07/24/24 08:01 Rocephin/D5w 1gm Iv Premix IV 07/31/24 08:59 100 mls/hr QDAY JAMES Administration Azithromycin 500 mg/ Sodium 250 mls @ 250 mls/hr 07/24/24 21:00 Chloride IV 07/31/24 20:59 HS JAMES Ondansetron HCl 4 mg 07/23/24 20:23 Ondansetron Inj 2 Mg/Ml Inj 2 Ml IV 08/22/24 20:22 Q6H PRN NAUSEA OR VOMITING Protocol Oseltamivir Phosphate 75 mg 07/23/24 21:00 07/24/24 08:01 Oseltamivir 75 Mg Capsule PO 07/30/24 20:59 75 mg BID JAMES Administration Sennosides 1 tab 07/23/24 20:23 Senna Tablet PO 08/22/24 20:22 QDAY PRN constipation Protocol Plan Patient is a 43-year-old female with no significant previous medical history who came to the ED with complaints of fever, chills, cough, headache. Patient is going to be admitted for sepsis secondary to community-acquired pneumonia. #Sepsis, resolved #Suspected superimposed community-acquired pneumonia #Influenza A and B infection Patient reports fever chills and productive cough. In the ED she was tachypneic, Temp 103. Sepsis alert was called. Sepsis bolus 30 mg/kg was ordered. She was started on antibiotics in the ED. 05/01 SIRS criteria = pulse rate 107, temperature 103 + pneumonia Tested positive for influenza A and B Procalcitonin is 2.13 Plan: ? Blood cultures ordered ? Ceftriaxone 1 g daily and started on doxycycline 100 Mg p.o. twice daily ? Oseltamivir 75 mg twice daily #Hypomagnesemia #Hypophosphatemia Initial Mg 1.4, phosphorus 1.2. Was given Mg 4 gm IV, 1 pkt of neutra-phos. Plan: - replete as necessary - monitor CMP # Mild Transaminitis, resolving # Space occupying lesion in the liver, Incidental finding Could be elevated in the setting of acute infection. On admission, AST 130, ALT 102. Alkaline phosphatase 141. ? Liver ultrasound ordered - Liver 14.4 cm fatty infiltration, 5.4 x 3.9 x 4.5 cm lesion in the right lobe - hepatitis panel ordered - negative Plan: - Will continue to monitor liver functions - Will recommend patient to follow-up on outpatient basis for further evaluation of lesion in the right lobe #History of methamphetamine use Patient stated that her last meth use is a month ago Plan: - social welfare research worker consult Health maintenance: FEN: regular DVT prophylaxis: lovenox 40 mg sc GI prophylaxis: none Dispo: telemetry CODE STATUS: Full code Patient plan of care was discussed with the attending physician, Dr. Reagan and senior resident Dr. Renita Dos Santos, PGY1
[2024-07-24 16:59] LABS: Magnesium 2.5 mg/dL (1.6-2.6); Phosphorous 2.4 mg/dL (2.4-5.1)
[2024-07-24] MEDS: DOXYCYCLINE 100 MG TABLET PO (20:57)
[2024-07-25] VITALS (10 sets, daily range): BP systolic 134–151; BP diastolic 71–94; PULSE 43–93; RESP 15–100; TEMP 36.1–36.4; O2SAT 96–100
[2024-07-25] MEDS: ACETAMINOPHEN 325 MG TABLET 650 MG PO (00:08)
[2024-07-25 05:41] LABS: Basophils % (Auto) 1 % (0-2.5); Eosinophils # (Auto) 0.1 Thou/mm3 (0.0-0.5); Eosinophils % (Auto) 3 % (0-10); Hematocrit 28.2 % (36.0-46.0); Immature Granulocytes % (Auto) 0 % (0-0); Immature Granulocytes Auto 0.01 Thou/mm3 (0.00-0.00); Lymphocytes # (Auto) 0.9 Thou/mm3 (1.0-4.8); Lymphocytes % (Auto) 27 % (10-50); Mean Corpuscular HGB Conc 29.4 g/dl (31.0-37.0); Mean Corpuscular Hemoglobin 20.7 pg (25.0-35.0); Mean Corpuscular Volume 70 fL (80-100); Monocytes # (Auto) 0.5 Thou/mm3 (0.0-0.8); Monocytes % (Auto) 16 % (0-12); Neutrophils # (Auto) 1.7 Thou/mm3 (1.8-7.7); Neutrophils % (Auto) 53 % (37-80); Nucleated Red Blood Cell % 0 /100 WBC (0); Platelet Count 151 Thou/mm3 (140-440); RDW Standard Deviation 39.8 fL (36.4-46.3); Red Blood Count 4.01 Miln/mm3 (4.00-5.20); White Blood Count 3.2 Thou/mm3 (3.6-11.0)
[2024-07-25 05:43] LABS: Hemoglobin 8.3 g/dL (12.0-16.0)
[2024-07-25 05:59] LABS: Alanine Aminotransferase 108 U/L (10-49); Albumin, Serum 3.2 gm/dL (3.5-5.0); Albumin/Globulin Ratio 1.5 (1.2-2.2); Alkaline Phosphatase 122 U/L (46-116); Anion Gap 5 (7-16); Aspartate Amino Transferase 96 U/L (0-34); BUN/Creatinine Ratio 18 Ratio (12-20); Bilirubin,Total 0.2 mg/dL (0.3-1.2); Blood Urea Nitrogen 14 mg/dL (9-23); Calcium 9.1 mg/dL (8.3-10.6); Calcium (Corrected) 9.7 mg/dL (8.5-10.1); Carbon Dioxide 27.9 mMol/L (20.0-31.0); Chloride 106 mMol/L (98-107); Creatinine (Component) 0.8 mg/dL (0.6-1.3); Estimated Creatinine Clearance 90.5 mL/min (>60); Globulin 2.2 gm/dL (2.3-3.5); Glucose 91 mg/dL (74-106); Osmolality,Calculated 278 (275-295); Potassium 4.4 mMol/L (3.4-5.1); Sodium 139 mMol/L (136-145); Total Protein 5.4 gm/dL (5.7-8.2); eGFR > 60 See Note
[2024-07-25] MEDS: DOXYCYCLINE 100 MG TABLET PO ×2 (08:06→20:51)
[2024-07-25] MEDS: cefTRIAXone/D5w 1gm IV premix 1 GM/50 ML BAG IV (08:06)
[2024-07-25] MEDS: OSELTAMIVIR 75 MG CAPSULE PO ×2 (08:06→20:51)
[2024-07-25] MEDS: ENOXAPARIN SOD INJ 40 MG/0.4 ML SYRINGE SC (08:06)
[2024-07-25] MEDS: RINGERS LACTATED 1000 ML 1,000 ML 125 ML IV (08:12)
[2024-07-25 09:46] LABS: Lactate (Lactic Acid) 1.4 mMol/L (0.4-2.0)
[2024-07-25] MEDS: ALBUTEROL/IPRATROPIUM (Duoneb) RT SOL 3 ML NEBU INH ×2 (11:20→23:34)
--- NOTE | 2024-07-25 14:28 | PC.SS ---
SS follow up note; Liver Enzymes elevated.
--- NOTE | 2024-07-25 15:33 | ESPR_ITS ---
<Statement entered by Krupa Reagan MD - 07/27/24 08:14> I reviewed above note and agree with findings and plans. I have also personally examined the patient with medicine team and went over assessment and plan with medical team including financial services intern and resident physician. <Statement entered by Tomas Zamudio MD - 07/25/24 21:05> patient seen and assessed at bedside. Patient doing much better today. LFT?s are still slightly elevated, if they go down tomtomorrow patient may be discharged. case discussed with team. Tomas Zamudio MD PGY 3. Documentation for date of: 07/25/24 Subjective Subjective Interval history: Patient is seen and examined at bedside. No acute overnight events. Denies any other complaints. On physical examination, diffuse bilateral expiratory wheeze heard Vitals are stable and patient is on room air. Labs showed mild leukopenia, uptrending transaminase levels Patient reported that she had liver mass since 1999 and report of abdomen/pelvis CT from that time showed hemangioma Recommended patient to follow-up on outpatient basis for the follow-up on the liver mass Planning to discharge tomorrow if the transaminase levels are downtrending Exam Vital Signs Temp Pulse Resp BP Pulse Ox O2 Del Method 97.4 F 84 18 142/89 H 100 Room Air 07/25/24 12:00 07/25/24 12:47 07/25/24 12:47 07/25/24 12:00 07/25/24 12:00 07/25/24 12:00 Narrative Exam General: Awake. HEENT: Normocephalic, atraumatic, mucous membranes moist. Heart: Regular rate and rhythm, no murmurs. Lungs: Bilateral diffuse expiratory wheeze heard Abdomen: Soft, nondistended, nontender, positive bowel sounds. ?No guarding or rebound tenderness. Neurologic: Alert and oriented x3, no gross neurological deficit, and patient able to move all 4 extremities. Extremities: No edema. Skin: No rash or ecchymoses. Objective Labs 07/25/24 04:20 07/25/24 04:20 Labs: Laboratory Results - last 24 hr 07/24/24 07/25/24 07/25/24 04:55 04:20 09:38 WBC 3.2 L RBC 4.01 Hgb 8.3 L Hct 28.2 L MCV 70 L MCH 20.7 L MCHC 29.4 L RDW Std Deviation 39.8 Plt Count 151 Neut % (Auto) 53 Lymph % (Auto) 27 [place] % (Auto) 16 H Eos % (Auto) 3 Baso % (Auto) 1 Neut # (Auto) 1.7 L Lymph # (Auto) 0.9 L [place] # (Auto) 0.5 Eos # (Auto) 0.1 Baso # (Auto) 0.0 Immature Gran # (Auto) 0.01 H Absolute Nucleated RBC 0.00 Immature Gran % 0 Nucleated RBC % 0 Sodium 139 Potassium 4.4 Chloride 106 Carbon Dioxide 27.9 Anion Gap 5 L BUN 14 Creatinine 0.8 Estim Creat Clear Calc 90.5 eGFR > 60 BUN/Creatinine Ratio 18 Glucose 91 Calculated Osmolality 278 Lactic Acid 1.4 Calcium 9.1 Corrected Calcium 9.7 Phosphorus 2.4 Magnesium 2.5 Total Bilirubin 0.2 L AST 96 H ALT 108 H Alkaline Phosphatase 122 H Total Protein 5.4 L Albumin 3.2 L Globulin 2.2 L Albumin/Globulin Ratio 1.5 Quality Measures Quality Measures sepsis Current suspected stage: ruled out Possible source: pulmonary Blood cultures ordered: yes Antibiotic ordered: Yes Assessment & Plan Assessment Current Active Medications: Generic Name Dose Route Start Last Admin Trade Name Freq PRN Reason Stop Dose Admin Acetaminophen 650 mg 07/23/24 20:23 07/25/24 00:08 Acetaminophen 325 Mg Tablet PO 08/22/24 20:22 650 mg Q6H PRN Administration Fever >100.3 or pain 1-3 Albuterol/Ipratropium 3 ml 07/23/24 20:23 Albuterol/Ipratropium (Duoneb) Rt Monica 3 Ml Nebu INH 08/22/24 20:22 Q2HR PRN SHORTNESS OF BREATH OR WHEEZE Albuterol/Ipratropium 3 ml 07/25/24 11:00 07/25/24 11:20 Albuterol/Ipratropium (Duoneb) Rt Monica 3 Ml Nebu INH 08/24/24 10:59 3 ml Q8HRRT JAMES Administration Doxycycline Hyclate 100 mg 07/24/24 21:00 07/25/24 08:06 Doxycycline 100 Mg Tablet PO 07/31/24 20:59 100 mg BID JAMES Administration Enoxaparin Sodium 40 mg 07/24/24 09:00 07/25/24 08:06 Enoxaparin Sod Inj 40 Mg/0.4 Ml Syringe SC 08/07/24 08:59 40 mg QDAY JAMES Administration Ceftriaxone Sodium/Dextrose 1 gm in 50 mls @ 100 mls/hr 07/24/24 09:00 07/25/24 08:06 Rocephin/D5w 1gm Iv Premix IV 07/31/24 08:59 100 mls/hr QDAY JAMES Administration Lactated Ringer's 1,000 mls @ 125 mls/hr 07/25/24 07:53 07/25/24 08:12 Lactated Ringers IV 07/25/24 15:52 125 mls/hr .Q8H ONE Administration Ondansetron HCl 4 mg 07/23/24 20:23 Ondansetron Inj 2 Mg/Ml Inj 2 Ml IV 08/22/24 20:22 Q6H PRN NAUSEA OR VOMITING Protocol Oseltamivir Phosphate 75 mg 07/23/24 21:00 07/25/24 08:06 Oseltamivir 75 Mg Capsule PO 07/30/24 20:59 75 mg BID JAMES Administration Sennosides 1 tab 07/23/24 20:23 Senna Tablet PO 08/22/24 20:22 QDAY PRN constipation Protocol Plan Patient is a 43-year-old female with no significant previous medical history who came to the ED with complaints of fever, chills, cough, headache. Patient is going to be admitted for sepsis secondary to community-acquired pneumonia. #Sepsis, resolved #Suspected superimposed community-acquired pneumonia #Influenza A and B infection Patient reports fever chills and productive cough. In the ED she was tachypneic, Temp 103. Sepsis alert was called. Sepsis bolus 30 mg/kg was ordered. She was started on antibiotics in the ED. 05/01 SIRS criteria = pulse rate 107, temperature 103 + pneumonia Tested positive for influenza A and B Procalcitonin is 2.13 -? Blood cultures negative after 24hrs Plan: ? Ceftriaxone 1 g daily and started on doxycycline 100 Mg p.o. twice daily ? Oseltamivir 75 mg twice daily # Mild Transaminitis # Space occupying lesion in the liver, Incidental finding Could be elevated in the setting of acute infection. On admission, AST 130, ALT 102. Alkaline phosphatase 141. Patient reported that she had that liver lesion since 1999 and did not follow up on that. Report on the patient mobile showed Hemangioma - Liver ultrasound ordered - Liver 14.4 cm fatty infiltration, 5.4 x 3.9 x 4.5 cm lesion in the right lobe - hepatitis panel ordered - negative Plan: - Will continue to monitor liver functions - Will recommend patient to follow-up on outpatient basis for further evaluation of lesion in the right lobe #Hypomagnesemia, resolved #Hypophosphatemia Initial Mg 1.4, phosphorus 1.2. Was given Mg 4 gm IV, 1 pkt of neutra-phos. Repeat Magnesium is 2.5 Plan: - replete as necessary - monitor CMP #History of methamphetamine use Patient stated that her last meth use is a month ago Plan: - social worker delinquency prevention consult Health maintenance: FEN: regular DVT prophylaxis: lovenox 40 mg sc GI prophylaxis: none Dispo: telemetry CODE STATUS: Full code Patient plan of care was discussed with the attending physician, Dr. Reagan and senior resident Dr. Robb Dos Santos, PGY1
[2024-07-26] VITALS: BP 151/86; PULSE 55; PULSE 72; RESP 20; TEMP 36.1; O2SAT 100
[2024-07-26 04:00] VITALS: BP 151/79; PULSE 69; PULSE 75; RESP 12; TEMP 36.1; O2SAT 100
[2024-07-26 07:38] VITALS: PULSE 62; PULSE 72; RESP 18; RESP 20; RESP 97; O2SAT 99
[2024-07-26] MEDS: ALBUTEROL/IPRATROPIUM (Duoneb) RT SOL 3 ML NEBU INH (07:38)
[2024-07-26 08:00] VITALS: BP 150/84; PULSE 70; PULSE 76; RESP 14; TEMP 36.1; O2SAT 96
[2024-07-26 08:24] LABS: Basophils % (Auto) 0 % (0-2.5); Eosinophils # (Auto) 0.1 Thou/mm3 (0.0-0.5); Eosinophils % (Auto) 3 % (0-10); Hematocrit 30.4 % (36.0-46.0); Hemoglobin 8.9 g/dL (12.0-16.0); Immature Granulocytes % (Auto) 1 % (0-0); Immature Granulocytes Auto 0.02 Thou/mm3 (0.00-0.00); Lymphocytes # (Auto) 1.4 Thou/mm3 (1.0-4.8); Lymphocytes % (Auto) 38 % (10-50); Mean Corpuscular HGB Conc 29.3 g/dl (31.0-37.0); Mean Corpuscular Hemoglobin 20.8 pg (25.0-35.0); Mean Corpuscular Volume 71 fL (80-100); Monocytes # (Auto) 0.3 Thou/mm3 (0.0-0.8); Monocytes % (Auto) 8 % (0-12); Neutrophils # (Auto) 1.9 Thou/mm3 (1.8-7.7); Neutrophils % (Auto) 51 % (37-80); Nucleated Red Blood Cell % 0 /100 WBC (0); Platelet Count 175 Thou/mm3 (140-440); RDW Standard Deviation 40.2 fL (36.4-46.3); Red Blood Count 4.27 Miln/mm3 (4.00-5.20); White Blood Count 3.7 Thou/mm3 (3.6-11.0)
[2024-07-26 08:51] LABS: Alanine Aminotransferase 78 U/L (10-49); Albumin, Serum 3.4 gm/dL (3.5-5.0); Albumin/Globulin Ratio 1.4 (1.2-2.2); Alkaline Phosphatase 118 U/L (46-116); Anion Gap 5 (7-16); Aspartate Amino Transferase 39 U/L (0-34); BUN/Creatinine Ratio 15 Ratio (12-20); Bilirubin,Total 0.2 mg/dL (0.3-1.2); Blood Urea Nitrogen 12 mg/dL (9-23); Calcium (Corrected) 10.5 mg/dL (8.5-10.1); Carbon Dioxide 28.9 mMol/L (20.0-31.0); Chloride 105 mMol/L (98-107); Creatinine (Component) 0.8 mg/dL (0.6-1.3); Estimated Creatinine Clearance 90.5 mL/min (>60); Globulin 2.4 gm/dL (2.3-3.5); Glucose 120 mg/dL (74-106); Osmolality,Calculated 278 (275-295); Potassium 4.6 mMol/L (3.4-5.1); Sodium 139 mMol/L (136-145); Total Protein 5.8 gm/dL (5.7-8.2); eGFR > 60 See Note
[2024-07-26] MEDS: cefTRIAXone/D5w 1gm IV premix 1 GM/50 ML BAG IV (10:00)
[2024-07-26] MEDS: DOXYCYCLINE 100 MG TABLET PO (10:00)
[2024-07-26] MEDS: OSELTAMIVIR 75 MG CAPSULE PO (10:00)
[2024-07-26] MEDS: ENOXAPARIN SOD INJ 40 MG/0.4 ML SYRINGE SC (10:00)
[2024-07-26] MEDS: ACETAMINOPHEN 325 MG TABLET 650 MG PO (10:37)
--- NOTE | 2024-07-26 11:39 | PD.RESDS ---
Planned Discharge Date 07/26/24 DS: Providers Provider Date of admission: 07/23/24 19:43 Primary care physician: Physician No Primary/Family Admitting Provider: Nadira Prieto MD Attending Provider on Admission: Didier Badillo MD Attending Provider on DC: Román Valle MD Discharging Provider: Román Valle MD DS: Diagnosis Problem List Completed Was Problem List Reviewed/Reconciled?: Yes Hospital Course Hospital Course Hospital course: Kristie Bland is a 43-year-old female with no significant PMHx who presented on 07/23 with fever, chills, cough, and headache for a few days. Found to have heart rate of 107, RR 20, temperature of 103 ?F, saturating well on room air. Found to be influenza A and B positive. Chest x-ray showed significant pneumonia of the right base and right middle lobe. She was started on oseltamavir and given elevated Pro-Venkat, she was also started on IV antibiotics for coverage of superimposed bacterial pneumonia. Throughout hospital stay patient continued to saturate well on room air, vitals remained stable other than mildly elevated heart rate, and labs also stable except for increasing LFTs. Liver ultrasound showed a 5.4 x 3.9 x 4.5 cm lesion in the right lobe. LFTs down trended on day of discharge and patient was recommended to follow-up outpatient for further evaluation of liver lesion. Thus, patient will be discharged with 2 more days of oseltamavir and 3 more days of antibiotics with strict return precautions if symptoms worsen or recur. Diagnoses during admission: #Sepsis, resolved #Suspected superimposed community-acquired pneumonia #Influenza A and B infection #Mild Transaminitis #Space occupying lesion in the liver, Incidental finding #Hypomagnesemia, resolved #Hypophosphatemia #History of methamphetamine use Discharge instructions: - Continue taking amoxicillin-clavulanate 875-125 mg twice daily for three more days - Continue taking Tamiflu/oseltamivir 75 mg twice per day for two more days - Follow-up with your PCP within 1-2 weeks of discharge - Discuss with your PCP regarding further evaluation of lesion in right lobe of liver - Return to the ED if symptoms worsen or recur Time Spent with Patient Time attestation: Total time spent providing and/or coordinating discharge services: Time spent: Greater than 30 minutes Exam Vital Signs Temp Pulse Resp BP Pulse Ox O2 Del Method 96.9 F 76 14 150/84 H 96 Room Air 07/26/24 08:00 07/26/24 08:00 07/26/24 08:00 07/26/24 08:00 07/26/24 08:00 07/26/24 08:00 Narrative Exam General: AOx3, no acute distress, able to speak full sentences HEENT: NC/AT, mucous membranes moist, bilateral sclera anicteric Cardiovascular: regular rate and rhythm, S1/S2 present, no murmurs appreciated Pulmonary: clear to auscultation bilaterally, no rales/rhonchi/wheezes Abdominal: soft, non-tender, non-distended, no rebound/guarding, normal bowel sounds present Musculoskeletal: normal ROM, no peripheral edema Skin: warm and dry, intact, no rashes Neuro: CN II-XII intact, no focal deficits Discharge Plan Plan Patient Disposition: HOME (Self Care) Disposition Comment: Admitted to Dr. Prieto Care Plan Goals: - Continue taking amoxicillin-clavulanate 875-125 mg twice daily for three more days - Continue taking Tamiflu/oseltamivir 75 mg twice per day for two more days - Follow-up with your PCP within 1-2 weeks of discharge - Discuss with your PCP regarding further evaluation of lesion in right lobe of liver - Return to the ED if symptoms worsen or recur Prescriptions/Referrals Prescriptions/Med Rec: New oseltamivir 75 mg Capsule 75 mg PO BID 2 Days Qty: 4 0RF amoxicillin-pot clavulanate 875-125 mg tablet 1 tab PO BID 3 Days Qty: 6 0RF Continued promethazine-DM 6.25-15 mg/5 mL syrup 5 ml PO Q6H PRN (Reason: cough) Qty: 118 0RF Referrals: No Primary/Family,Physician [Primary Care Provider] - Patient/Caregiver Discharge Instructions Print Language: Belarusian Stand Alone Forms: Kim Award Info., Patient Portal Info Letter Discharge Order Discharge Orders: Discharge (Routine); Ordered 07/26/24 Ordered By: Román Valle Quality Discharge Quality Measures VTE prophylaxis Attestestation MD Attestation I reviewed labs, imaging, EKG, home medications and prior available records. Face to face evaluation was performed by me. I have personally examined the patient and discussed assessment and plan with the IM team. I reviewed the resident note and agree with the plan with exceptions as below. Right lower lobe pneumonia Influenza A Influenza B Transaminitis Liver lesion Will discharge on amoxicillin and Tamiflu for 5 days Trend LFTs: Down trended. Repeat LFTs in 1 week to ensure improvement Outpatient follow-up for the liver lesion Time spent is 40 minutes. More than 50% of the time was spent on patient education and coordination of care.
[2024-07-26 12:00] VITALS: BP 150/80; PULSE 68; PULSE 73; PULSE 81; RESP 19; RESP 20; RESP 98; TEMP 36; O2SAT 98
== END 2024-07-26 13:14 | disposition home or self-care (01) | DRG 139 ==
LOC: SERX 19:31 → SERHOLD 20:10 → S2NX 22:53
PROVIDERS: Nurse Practitioner Primary Care; Admitting Provider Student in an Organized Health Care Education/Training Program; Emergency Provider Emergency Medicine; Visit Provider Student in an Organized Health Care Education/Training Program
DX: J10.08 Influenza due to other identified influenza virus with other specified pneumonia (principal); J15.9 Unspecified bacterial pneumonia; F15.90 Other stimulant use, unspecified, uncomplicated; E83.42 Hypomagnesemia; E83.39 Other disorders of phosphorus metabolism; R74.01 Elevation of levels of liver transaminase levels; Z59.00 Homelessness unspecified; G43.909 Migraine, unspecified, not intractable, without status migrainosus; K76.9 Liver disease, unspecified
CPT/HCPCS: 36415; 71046; 76705; 80053; 80074; 80307; 81001; 81025; 83605; 83615; 83690; 83735; 83880; 84100; 84145; 84484; 85025; 85610; 85730; 87040; 87086; 87400; 87811; 93005; 94640; 94664; 96365; 99285; A9270; J0456; J0696; J1650; J3475; J7030; J7050; J7120